=== PATIENT | female | born 1975 | race African-American/Black ===

== ENCOUNTER 2018-07-20 19:09 | Emergency (ER) | payer BC, MEDICAID ==
[~2018-07-20] VITALS: Ht 175.3 cm; Wt 88.5 kg
[2018-07-20 20:08] LABS: BASOPHILS # (AUTO) 0.1 K/uL (0.0-8.0); BASOPHILS % (AUTO) 0.8 % (0.0-2.0); EOSINOPHILS % (AUTO) 0.5 % (0.0-7.0); HEMATOCRIT 25.3 % (31.2-41.9); HEMOGLOBIN 8.2 g/dL (10.9-14.3); MEAN CORPUSCULAR HEMOGLOBIN 18.9 uug (24.7-32.8); MEAN CORPUSCULAR HGB CONC 32 g/dL (32.3-35.6); MEAN CORPUSCULAR VOLUME 58.3 fL (75.5-95.3); MONOCYTES # (AUTO) 0.3 K/uL (2.0-10.0); MONOCYTES % (AUTO) 3.7 % (0.0-11.0); NEUTROPHILS # (AUTO) 5.4 K/uL (1.8-8.9); PLATELET COUNT (AUTO) 226 K/uL (179-408); RED BLOOD CELL COUNT(AUTO) 4.33 MIL/uL (3.63-4.92); WHITE BLOOD COUNT (AUTO) 8.9 K/uL (3.8-11.8)
[2018-07-20 20:09] LABS: CREATININE 0.8 mg/dL (0.6-1.3); POTASSIUM 3.3 mmol/L (3.5-5.1)
[2018-07-20 20:14] LABS: BILIRUBIN,DIRECT 0.1 mg/dL (0.0-0.2); BILIRUBIN,TOTAL 0.4 mg/dL (0.2-1.0); TOTAL PROTEIN, SERUM 8.3 g/dL (6.4-8.2)
[2018-07-20 20:36] LABS: BAND % (MANUAL) 2 % (0-10); LYMPHOCYTES % (MANUAL) 27 % (20-40); MONOCYTES % (MANUAL) 2 % (2-10); NEUTROPHILS % (MANUAL) 69 % (42-75)
--- NOTE | 2018-07-20 20:48 | NUR ---
Patient discharged to home in stable conditon. Written and verbal after care instructions given. A copy of lab results from today's visit were included with discharge papers. Patient verbalizes understanding of instructions. OK to d/c per Dr. Pappas, patient ambulated out of dept with daughter, has steady gait.
[2018-07-20 21:01] VITALS: BP 115/81
== END 2018-07-20 20:50 | disposition home or self-care (01) ==
LOC: ER 19:12
DX: D50.0 Iron deficiency anemia secondary to blood loss (chronic) (principal)
CPT/HCPCS: 36415; 85025; 85730; A4663